=== PATIENT | male | born 1985 | race Caucasian/White ===

== ENCOUNTER → 2020-01-30 09:52 | Outpatient (BNVA) | payer MEDICAID, SELFPAY | PROVIDERS: Family Provider Counselor Professional; PCP Family Medicine; Visit Provider Psychiatry & Neurology Psychiatry | DX: F43.12 Post-traumatic stress disorder, chronic (principal); F40.10 Social phobia, unspecified; F41.1 Generalized anxiety disorder; F33.2 Major depressive disorder, recurrent severe without psychotic features | CPT/HCPCS: 99213 ==

== ENCOUNTER → 2020-02-13 09:15 | Outpatient (BNVA) | payer MEDICAID, SELFPAY | PROVIDERS: Family Provider Counselor Professional; PCP Family Medicine; Visit Provider Family Medicine | DX: I10 Essential (primary) hypertension (principal); E03.9 Hypothyroidism, unspecified; K21.9 Gastro-esophageal reflux disease without esophagitis; Z68.45 Body mass index [BMI] 70 or greater, adult; R06.02 Shortness of breath; R60.0 Localized edema | CPT/HCPCS: 80053; 80061; 84443 ==

== ENCOUNTER → 2020-02-26 08:34 | Outpatient (BNVA) | payer MEDICAID, SELFPAY | PROVIDERS: Family Provider Counselor Professional; PCP Family Medicine; Visit Provider Psychiatry & Neurology Psychiatry | DX: F33.2 Major depressive disorder, recurrent severe without psychotic features (principal); F41.1 Generalized anxiety disorder; F40.10 Social phobia, unspecified; F43.12 Post-traumatic stress disorder, chronic | CPT/HCPCS: 99213 ==

== ENCOUNTER → 2020-03-09 09:34 | Outpatient (BNVA) | payer MEDICAID, SELFPAY | PROVIDERS: Family Provider Counselor Professional; PCP Family Medicine; Visit Provider Family Medicine | DX: R82.90 Unspecified abnormal findings in urine (principal); E11.9 Type 2 diabetes mellitus without complications; R30.0 Dysuria; J30.9 Allergic rhinitis, unspecified; B37.0 Candidal stomatitis | CPT/HCPCS: 80048; 80053; 81000; 83036 ==

== ENCOUNTER → 2020-03-24 07:53 | Outpatient (BNVA) | payer MEDICAID, SELFPAY | PROVIDERS: Family Provider Counselor Professional; PCP Family Medicine; Visit Provider Psychiatry & Neurology Psychiatry | DX: F33.2 Major depressive disorder, recurrent severe without psychotic features (principal); F41.1 Generalized anxiety disorder; F40.10 Social phobia, unspecified; F43.12 Post-traumatic stress disorder, chronic | CPT/HCPCS: 99214 ==

== ENCOUNTER → 2020-03-26 08:45 | Outpatient (BNVA) | payer MEDICAID, SELFPAY | PROVIDERS: Family Provider Counselor Professional; PCP Family Medicine; Visit Provider Family Medicine | DX: E11.9 Type 2 diabetes mellitus without complications (principal); E11.65 Type 2 diabetes mellitus with hyperglycemia; E87.1 Hypo-osmolality and hyponatremia; E87.5 Hyperkalemia | CPT/HCPCS: 80048 ==

== ENCOUNTER → 2020-04-20 10:50 | Outpatient (BNVA) | payer MEDICAID, SELFPAY | PROVIDERS: Family Provider Counselor Professional; PCP Family Medicine; Visit Provider Family Medicine | DX: E11.65 Type 2 diabetes mellitus with hyperglycemia (principal); E66.01 Morbid (severe) obesity due to excess calories; R25.2 Cramp and spasm | CPT/HCPCS: 80053; 80061; 82306; 82310; 82607; 82728; 82746; 82785; 83036; 83540; 83550; 83735; 83970; 84100; 84425; 84443; 84630; 85025; 86003 ==

== ENCOUNTER 2020-04-27 20:00 | Outpatient (CLI) | payer MEDICAID, SELFPAY ==
--- NOTE | 2020-05-14 10:16 | PC.SOCIAL ---
Received a call from Kaley Ho, nurse for Dr. Díaz in regards to helping get a patient a BiPAP approved through Medicaid. He is not currently here in the hospital. [employer] precert done for BiPAP and heated humidifier and both were approved. Pre-cert request number for BiPAP: [id number]. Pre-cert request number for heated humidifier: [id number]. [facility]
== END 2020-04-27 20:01 | disposition home or self-care (01) ==
LOC: SLEEP 04-28 09:24
PROVIDERS: Family Provider Counselor Professional; PCP Family Medicine; Visit Provider Internal Medicine Critical Care Medicine
DX: G47.10 Hypersomnia, unspecified (principal); G47.33 Obstructive sleep apnea (adult) (pediatric)
CPT/HCPCS: 95811

== ENCOUNTER → 2020-05-05 07:52 | Outpatient (BNVA) | payer MEDICAID, SELFPAY | PROVIDERS: Family Provider Counselor Professional; PCP Family Medicine; Visit Provider Psychiatry & Neurology Psychiatry | DX: F43.12 Post-traumatic stress disorder, chronic (principal); F40.10 Social phobia, unspecified; F41.1 Generalized anxiety disorder; F33.2 Major depressive disorder, recurrent severe without psychotic features | CPT/HCPCS: 99213 ==

== ENCOUNTER → 2020-05-14 09:14 | Outpatient (BNVA) | payer MEDICAID, SELFPAY | PROVIDERS: Family Provider Counselor Professional; PCP Family Medicine; Visit Provider Family Medicine | DX: I10 Essential (primary) hypertension (principal); E03.9 Hypothyroidism, unspecified; K21.9 Gastro-esophageal reflux disease without esophagitis; R60.0 Localized edema; R06.02 Shortness of breath; Z68.45 Body mass index [BMI] 70 or greater, adult; E66.01 Morbid (severe) obesity due to excess calories; R25.2 Cramp and spasm; E55.9 Vitamin D deficiency, unspecified; E11.65 Type 2 diabetes mellitus with hyperglycemia; E87.1 Hypo-osmolality and hyponatremia | CPT/HCPCS: 82747; 85025 ==

== ENCOUNTER → 2020-06-09 10:23 | Outpatient (BNVA) | payer MEDICAID, SELFPAY | PROVIDERS: Family Provider Counselor Professional; PCP Family Medicine; Visit Provider Psychiatry & Neurology Psychiatry | DX: F33.2 Major depressive disorder, recurrent severe without psychotic features (principal); F41.1 Generalized anxiety disorder | CPT/HCPCS: 99214 ==

== ENCOUNTER → 2020-06-29 09:52 | Outpatient (BNVA) | payer MEDICAID, SELFPAY | PROVIDERS: Family Provider Counselor Professional; PCP Family Medicine; Visit Provider Psychiatry & Neurology Psychiatry | DX: F33.2 Major depressive disorder, recurrent severe without psychotic features (principal); F41.1 Generalized anxiety disorder | CPT/HCPCS: 99214 ==

== ENCOUNTER → 2020-07-15 10:35 | Outpatient (BNVA) | payer MEDICAID, SELFPAY | PROVIDERS: Family Provider Counselor Professional; PCP Family Medicine; Visit Provider Family Medicine | DX: I10 Essential (primary) hypertension (principal); E11.9 Type 2 diabetes mellitus without complications; E55.9 Vitamin D deficiency, unspecified | CPT/HCPCS: 80053; 82652; 83036 ==

== ENCOUNTER 2020-07-27 07:45 | Outpatient (CLI) | payer MEDICAID, SELFPAY ==
--- NOTE | 2020-07-27 08:45 | USCV_ITS ---
Omar Weems Age: 35 Gender: M : 1985 Exam Date: 07/27/2020 08:06 Ordering Phys: Irma Pérez MD ([email or web address]) Technologist: Wayne Andrew [place] [facility] [place]: PRE OP BP: 170 / 80 HR: 83 Rhythm: Sinus Technical Quality: Technically difficult study MEASUREMENTS (Male / Female) Normal Values 2D ECHO LVOT Diameter 2.0 cm LV Ejection Fraction MOD 2C 73.7 % LV Ejection Fraction 2C AL 72.5 % LA Diameter 5.3 cm LA Width 4.3 cm LA Height 5.6 cm RA Width 4.8 cm RA Height 4.9 cm M-MODE LV Diastolic Diameter MM 6.6 cm 4.2 - 5.9 / 3.9 - 5.3 cm LV Systolic Diameter MM 4.8 cm LV Ejection Fraction MM Teich 52.1 % IVS Diastolic Thickness MM 1.0 cm 0.6 - 1.0 / 0.6 - 0.9 cm IVS Systolic Thickness MM 1.8 cm LVPW Diastolic Thickness MM 1.4 cm 0.6 - 1.0 / 0.6 - 0.9 cm LVPW Systolic Thickness MM 2.3 cm RV Diastolic Diameter MM 3.2 cm Aortic Annulus Diameter 4.2 cm LA Ao Ratio MM 1.3 MV E Point Septal Separation 1.4 cm DOPPLER AV Peak Velocity 134.0 cm/s LVOT Peak Velocity 103.0 cm/s AV Area Cont Eq vti 2.1 cm squared AV Area Cont Eq pk 2.5 cm squared MV Area PHT 5.0 cm squared Mitral E to A Ratio 1.1 MV E' Velocity 87.0 cm/s TR Peak Velocity 116.0 cm/s TR Peak Gradient 5.4 mmHg TV Peak E Velocity 83.0 cm/s Right Atrial Pressure 3.0 mmHg Pulmonary Artery Systolic Pressu 8.4 mmHg PV Peak Velocity 109.0 cm/s FINDINGS Left Ventricle Normal left ventricular cavity size. Normal left ventricular systolic function. Left ventricular ejection fraction is estimated at 60%. No regional wall motion abnormalities. Diastolic function was not assessed. Right Ventricle Normal right ventricular size and systolic function. Right ventricular systolic pressure 8.4 mmHg. Right Atrium Normal right atrial size. Left Atrium Probably normal left atrial size. Mitral Valve Mildly thickened mitral valve. Aortic Valve Aortic valve not well visualized. No aortic valve stenosis. Tricuspid Valve Tricuspid valve not well visualized. Pulmonic Valve Pulmonic valve not well visualized. Pericardium No pericardial effusion. Aorta Aorta not well visualized. CONCLUSIONS 1. This is a technically very difficult study. Ultrasound enhancing agent (Optison) was used per protocol. 2. Normal left ventricular cavity size and systolic function. Left ventricular ejection fraction is estimated at 60%. No regional wall motion abnormalities. 3. Normal right ventricular size and systolic function. 4. No prior similar studies to compare. Irma Pérez MD (Electronically Signed) Final Date: 27 July 2020 14:52 S
[2020-07-27] MEDS: perflutren protein-a microsphr 0.22 mg/mL SDV 3 mL IV (08:46)
== END 2020-07-27 07:46 | disposition home or self-care (01) ==
LOC: RAD 07:46
PROVIDERS: Family Provider Counselor Professional; PCP Family Medicine; Visit Provider Internal Medicine Cardiovascular Disease
DX: Z01.810 Encounter for preprocedural cardiovascular examination (principal)
CPT/HCPCS: C8929; Q9956

== ENCOUNTER → 2020-08-03 08:21 | Outpatient (BNVA) | payer MEDICAID, SELFPAY | PROVIDERS: Family Provider Counselor Professional; PCP Family Medicine; Visit Provider Psychiatry & Neurology Psychiatry | DX: F41.1 Generalized anxiety disorder (principal); F33.9 Major depressive disorder, recurrent, unspecified | CPT/HCPCS: 99214 ==

== ENCOUNTER → 2020-09-07 08:33 | Outpatient (BNVA) | payer MEDICAID, SELFPAY | PROVIDERS: Family Provider Counselor Professional; PCP Family Medicine; Visit Provider Psychiatry & Neurology Psychiatry | DX: F41.1 Generalized anxiety disorder (principal); F43.10 Post-traumatic stress disorder, unspecified | CPT/HCPCS: 99214 ==

== ENCOUNTER → 2020-09-25 15:25 | Outpatient (BNVA) | payer MEDICAID, SELFPAY | PROVIDERS: Family Provider Counselor Professional; PCP Family Medicine; Visit Provider Psychiatry & Neurology Psychiatry | DX: F33.2 Major depressive disorder, recurrent severe without psychotic features (principal); F41.1 Generalized anxiety disorder; E66.01 Morbid (severe) obesity due to excess calories | CPT/HCPCS: 99213 ==

== ENCOUNTER → 2020-10-12 09:50 | Outpatient (BNVA) | payer MEDICAID, SELFPAY | PROVIDERS: Family Provider Counselor Professional; PCP Family Medicine; Visit Provider Family Medicine | DX: I10 Essential (primary) hypertension (principal); R25.2 Cramp and spasm; E11.65 Type 2 diabetes mellitus with hyperglycemia; E11.42 Type 2 diabetes mellitus with diabetic polyneuropathy; E11.9 Type 2 diabetes mellitus without complications | CPT/HCPCS: 83036 ==

== ENCOUNTER → 2020-12-29 08:18 | Outpatient (BNVA) | payer MEDICAID, SELFPAY | PROVIDERS: Family Provider Counselor Professional; PCP Family Medicine; Visit Provider Psychiatry & Neurology Psychiatry | DX: F33.2 Major depressive disorder, recurrent severe without psychotic features (principal); F41.1 Generalized anxiety disorder; E66.01 Morbid (severe) obesity due to excess calories | CPT/HCPCS: 99214 ==

== ENCOUNTER → 2021-01-11 08:56 | Outpatient (BNVA) | payer MEDICAID, SELFPAY | PROVIDERS: Family Provider Counselor Professional; PCP Family Medicine; Visit Provider Family Medicine | DX: E11.65 Type 2 diabetes mellitus with hyperglycemia (principal); E03.9 Hypothyroidism, unspecified; I10 Essential (primary) hypertension; E78.2 Mixed hyperlipidemia; K21.9 Gastro-esophageal reflux disease without esophagitis; E11.42 Type 2 diabetes mellitus with diabetic polyneuropathy; J30.9 Allergic rhinitis, unspecified; E78.5 Hyperlipidemia, unspecified; G25.81 Restless legs syndrome; Z68.45 Body mass index [BMI] 70 or greater, adult; J01.90 Acute sinusitis, unspecified; B97.89 Other viral agents as the cause of diseases classified elsewhere; Z74.09 Other reduced mobility | CPT/HCPCS: 80053; 80061; 83036; 84443 ==

== ENCOUNTER → 2021-02-15 08:15 | Outpatient (BNVA) | payer MEDICAID, SELFPAY | PROVIDERS: Family Provider Counselor Professional; PCP Family Medicine; Visit Provider Psychiatry & Neurology Psychiatry | DX: F41.1 Generalized anxiety disorder (principal); F33.2 Major depressive disorder, recurrent severe without psychotic features; E66.01 Morbid (severe) obesity due to excess calories | CPT/HCPCS: 99214 ==

== ENCOUNTER → 2021-04-06 08:59 | Outpatient (BNVA) | payer MEDICAID, SELFPAY | PROVIDERS: Family Provider Counselor Professional; PCP Family Medicine; Visit Provider Family Medicine | DX: E11.65 Type 2 diabetes mellitus with hyperglycemia (principal); J30.1 Allergic rhinitis due to pollen; E34.9 Endocrine disorder, unspecified | CPT/HCPCS: 80053; 83036; 84402; 84403 ==

== ENCOUNTER → 2021-04-19 08:27 | Outpatient (BNVA) | payer MEDICAID, SELFPAY | PROVIDERS: Family Provider Counselor Professional; PCP Family Medicine; Referring Provider Family Medicine; Visit Provider Family Medicine | DX: E34.9 Endocrine disorder, unspecified (principal); R53.83 Other fatigue; R79.89 Other specified abnormal findings of blood chemistry | CPT/HCPCS: 84402; 84403 ==

== ENCOUNTER → 2021-04-27 09:39 | Outpatient (BNVA) | payer MEDICAID, SELFPAY | PROVIDERS: Family Provider Counselor Professional; PCP Family Medicine; Referring Provider Family Medicine; Visit Provider Family Medicine | DX: R53.83 Other fatigue (principal) | CPT/HCPCS: 84402; 84403 ==

== ENCOUNTER → 2021-05-13 07:51 | Outpatient (BNVA) | payer MEDICAID, SELFPAY | PROVIDERS: Family Provider Counselor Professional; PCP Family Medicine; Visit Provider Psychiatry & Neurology Psychiatry | DX: F41.1 Generalized anxiety disorder (principal); E66.01 Morbid (severe) obesity due to excess calories; F33.2 Major depressive disorder, recurrent severe without psychotic features | CPT/HCPCS: 99214 ==

== ENCOUNTER → 2021-06-24 07:57 | Outpatient (BNVA) | payer MEDICAID, SELFPAY | PROVIDERS: Family Provider Counselor Professional; PCP Family Medicine; Visit Provider Psychiatry & Neurology Psychiatry | DX: F33.2 Major depressive disorder, recurrent severe without psychotic features (principal); F41.1 Generalized anxiety disorder; E66.01 Morbid (severe) obesity due to excess calories | CPT/HCPCS: 99214 ==

== ENCOUNTER → 2021-07-20 15:39 | Outpatient (BNVA) | payer MEDICAID, SELFPAY | PROVIDERS: Family Provider Counselor Professional; PCP Family Medicine; Visit Provider Family Medicine | DX: E11.65 Type 2 diabetes mellitus with hyperglycemia (principal); E11.42 Type 2 diabetes mellitus with diabetic polyneuropathy | CPT/HCPCS: 83036 ==

== ENCOUNTER → 2021-08-05 08:12 | Outpatient (BNVA) | payer MEDICAID, SELFPAY | PROVIDERS: Family Provider Counselor Professional; PCP Family Medicine; Visit Provider Psychiatry & Neurology Psychiatry | DX: F33.2 Major depressive disorder, recurrent severe without psychotic features (principal); F41.1 Generalized anxiety disorder; E66.01 Morbid (severe) obesity due to excess calories | CPT/HCPCS: 99214 ==

== ENCOUNTER → 2021-09-09 10:48 | Outpatient (BNVA) | payer MEDICAID, SELFPAY | PROVIDERS: Family Provider Counselor Professional; PCP Family Medicine; Visit Provider Family Medicine | DX: Z20.822 Contact with and (suspected) exposure to COVID-19 (principal); J32.9 Chronic sinusitis, unspecified; B96.89 Other specified bacterial agents as the cause of diseases classified elsewhere | CPT/HCPCS: 87635 ==

== ENCOUNTER → 2021-10-05 09:51 | Outpatient (BNVA) | payer MEDICAID, SELFPAY | PROVIDERS: Family Provider Counselor Professional; PCP Family Medicine; Visit Provider Psychiatry & Neurology Psychiatry | DX: F33.2 Major depressive disorder, recurrent severe without psychotic features (principal); F41.1 Generalized anxiety disorder; E66.01 Morbid (severe) obesity due to excess calories; B96.89 Other specified bacterial agents as the cause of diseases classified elsewhere; J32.9 Chronic sinusitis, unspecified | CPT/HCPCS: 99214 ==

== ENCOUNTER → 2021-11-30 08:58 | Outpatient (BNVA) | payer MEDICAID, SELFPAY | PROVIDERS: Family Provider Counselor Professional; PCP Family Medicine; Visit Provider Family Medicine | DX: E11.65 Type 2 diabetes mellitus with hyperglycemia (principal); E34.9 Endocrine disorder, unspecified; E29.1 Testicular hypofunction; E78.2 Mixed hyperlipidemia; E03.9 Hypothyroidism, unspecified; B37.2 Candidiasis of skin and nail; E66.01 Morbid (severe) obesity due to excess calories; I10 Essential (primary) hypertension | CPT/HCPCS: 80053; 80061; 83036; 84402; 84403; 84443 ==

== ENCOUNTER → 2021-12-03 11:24 | Outpatient (BNVA) | payer MEDICAID, SELFPAY | PROVIDERS: Family Provider Counselor Professional; PCP Family Medicine; Visit Provider Psychiatry & Neurology Psychiatry | DX: J32.9 Chronic sinusitis, unspecified (principal); B96.89 Other specified bacterial agents as the cause of diseases classified elsewhere; F41.1 Generalized anxiety disorder; E66.01 Morbid (severe) obesity due to excess calories; F33.2 Major depressive disorder, recurrent severe without psychotic features | CPT/HCPCS: 99214 ==

== ENCOUNTER → 2022-02-03 09:47 | Outpatient (BNVA) | payer MEDICAID, SELFPAY | PROVIDERS: Family Provider Counselor Professional; PCP Family Medicine; Visit Provider Internal Medicine Critical Care Medicine | DX: J45.909 Unspecified asthma, uncomplicated (principal); G47.33 Obstructive sleep apnea (adult) (pediatric); E66.01 Morbid (severe) obesity due to excess calories; Z87.891 Personal history of nicotine dependence; K21.9 Gastro-esophageal reflux disease without esophagitis; E78.5 Hyperlipidemia, unspecified; I10 Essential (primary) hypertension; E11.8 Type 2 diabetes mellitus with unspecified complications | CPT/HCPCS: 99214 ==

== ENCOUNTER → 2022-02-04 09:19 | Outpatient (BNVA) | payer MEDICAID, SELFPAY | PROVIDERS: Family Provider Counselor Professional; PCP Family Medicine; Visit Provider Psychiatry & Neurology Psychiatry | DX: F33.2 Major depressive disorder, recurrent severe without psychotic features (principal); F41.1 Generalized anxiety disorder; E66.01 Morbid (severe) obesity due to excess calories | CPT/HCPCS: 99214 ==

== ENCOUNTER → 2022-06-09 13:30 | Outpatient (BNVA) | payer MEDICAID, SELFPAY | PROVIDERS: Family Provider Counselor Professional; PCP Family Medicine; Visit Provider Family Medicine | DX: E11.65 Type 2 diabetes mellitus with hyperglycemia (principal); E34.9 Endocrine disorder, unspecified; E29.1 Testicular hypofunction | CPT/HCPCS: 80048; 83036; 84402; 84403; 84443 ==

== ENCOUNTER 2022-07-28 04:30 | Emergency (ER) | payer MEDICAID, SELFPAY ==
[2022-07-28 04:34] VITALS: BP 185/101; PULSE 101; RESP 22; TEMP 36.4; O2SAT 94; BMI 78.0
--- NOTE | 2022-07-28 04:56 | XRR_ITS ---
PROCEDURE INFORMATION: Exam: XR Chest Exam date and time: 07/28/2022 5:02 AM Age: 37 years old Clinical indication: Cough and shortness of breath; Patient HX: C/O cough with SOB and chest congestion; Additional info: Cough, SOB TECHNIQUE: Imaging protocol: Radiologic exam of the chest. Views: 2 views. PA and Lateral COMPARISON: No relevant prior studies available. FINDINGS: Lungs: There are normal lung volumes without interstitial or airspace opacities. Pleural spaces: There are no pleural effusions or pneumothorax. Heart/Mediastinum: The heart size is normal. The pulmonary vasculature is normal. The mediastinal contour is normal. The trachea is in the midline. Bones/joints: No acute abnormalities. Other: The exam is somewhat limited, related to the body habitus. XR/XR chest 2V* [id number] IMPRESSION: No chest radiographic evidence of acute cardiopulmonary disease.
--- NOTE | 2022-07-28 04:57 | ED_ITS ---
HPI - SOB/Dyspnea General: Chief Complaint: Shortness of Breath/Dyspnea Stated Complaint: Chest congestion, SOB Time Seen by Provider: 07/28/22 04:53 History of Present Illness: HPI Narrative: 37-year-old male presents with some chest congestion, shortness of breath, cough, subjective fever just not feeling well. Patient reports that his uncle who is around is sick and has pneumonia. Patient has some underlying reactive airway disease. Patient denies chest pain, nausea vomiting diarrhea. Associated symptoms: Reports extremity pain; Deny abdominal pain, chest pain, dizziness, nausea, palpitations or vomiting Review of Systems Const: Reports: chills and body aches ENMT: Denies: throat pain or ear or mastoid pain Card: Denies: chest pain or palpitations Resp: Reports: dyspnea, non-productive cough and wheezing GI: Denies: abdominal pain, nausea, vomiting or diarrhea : Denies: difficulty urinating or dysuria Musc: Reports: extremity pain Skin/Breast: Denies: rash Neuro: Denies: headache(s) or dizziness PFSH ED PFSH: Medical History Allergic rhinitis Diabetic neuropathy GERD (gastroesophageal reflux disease) Hyperlipidemia Hypertension Hypothyroidism Psychiatric care Type 2 diabetes mellitus Vitamin D deficiency Family History Family/Other Diabetes Hypertension Cancer Social History Smoking and tobacco status: current every day smoker e-cigarettes E-Cigarette Details: vaporizer device and with nicotine Second hand smoke exposure: Yes Smoking risk assessment/counseling performed?: Yes Tobacco counseling given: counseling >3 minutes Alcohol intake: current Alcohol intake frequency: holidays/special occasions only Lives independently: Yes Household members: family Marital status: Single Current occupational status: unemployed History of recent travel: No Current gender identity: Male Physical Exam Const: COMMON NORMALS: patient oriented x3 GENERAL APPEARANCE: cooperative NUTRITIONAL APPEARANCE: obese morbidly obese HENMT: COMMON NORMALS: hearing grossly normal bilaterally and moist oral mucous membranes Resp: COMMON NORMALS: normal respiratory effort, No retractions and No use of accessory muscles EFFORT & INSPECTION: Yes able to speak in complete sentences AUSCULTATION: bronchial breath sounds (Mild) diffuse Cardio: COMMON NORMALS: regular rate and regular rhythm RATE: regular rate RHYTHM: regular rhythm Extremity: COMMON NORMALS: full ROM Neuro: COMMON NORMALS: patient oriented x3, moves all extremities and no focal motor deficits Psych: COMMON NORMALS: mental status grossly normal, Normal thought process present and cooperative THOUGHT PROCESS: Normal thought process present Skin: COMMON NORMALS: no rashes or lesions noted GENERAL SKIN EXAM: no rashes or lesions noted Course Vital Signs: Vital signs: Vital Signs Temperature 97.5 F L 07/28/22 04:34 Pulse Rate 101 H 07/28/22 04:34 Respiratory Rate 22 H 07/28/22 04:34 Blood Pressure 185/101 07/28/22 04:34 Pulse Oximetry 94 07/28/22 04:34 Oxygen Delivery Me thod 07/28/22 04:34 MDM - SOB/Dyspnea Medical Decision Making No acute infiltrate or pneumonia noted on x-ray. Patient with some underlying reactive airway disease. Patient with bronchitis. I will start him on azithromycin. He was given a DuoNeb and Decadron here in the ER. Patient's COVID test was pending at discharge. He will be notified of a comes back positive. He should follow-up with his primary care provider as needed. Discharge Plan Discharge Patient Disposition: Home Clinical Impression: Bronchitis Condition: Stable Prescriptions: New azithromycin 250 mg tablet See Rx Instructions .ROUTE .COMPLEX Qty: 6 0RF Rx Instructions: For 250 mg dose pack: take 500 mg today (day 1), then 250 mg for 4 days (days 2-5) No Action (DME) pen needle, diabetic [ReliOn Pen [place]] 32 gauge x 5/32 needle See Rx Instructions .Route Qty: 50 0RF Rx Instructions: As directed, brand/type as needed with Ozempic pens triamcinolone acetonide 0.1 % cream 1 applic topical BID Qty: 80 0RF Rx Instructions: to hands fluconazole 150 mg tablet 150 mg PO Q3D 0 Days Qty: 2 1RF guaifenesin 1,200 mg tablet extended release 12hr 1,200 mg PO .at bedtime 90 Days Qty: 90 0RF albuterol sulfate 2.5 mg /3 mL (0.083 %) solution for nebulization 2.5 mg inhalation Q6H Qty: 150 0RF phentermine 37.5 mg tablet 37.5 mg PO DAILY Rx Instructions: must administer 30 minutes before or 1-2 hours after breakfast pregabalin 75 mg capsule 75 mg PO TID 30 Days Qty: 90 2RF ropinirole 0.5 mg tablet See Rx Instructions .ROUTE .COMPLEX Qty: 30 2RF Dose Instruction: TAKE 1 TABLET BY MOUTH AT BEDTIME Rx Instructions: TAKE 1 TABLET BY MOUTH AT BEDTIME testosterone cypionate 200 mg/mL oil 100 mg IM .q 2 weeks 28 Days Qty: 2 5RF Rx Instructions: With needles and syringes for injection omeprazole 20 mg capsule,delayed release(DR/EC) See Rx Instructions .ROUTE .COMPLEX Qty: 30 5RF Dose Instruction: TAKE 1 CAPSULE BY MOUTH DAILY NEEDED FOR HEARTBURN Rx Instructions: TAKE 1 CAPSULE BY MOUTH DAILY NEEDED FOR HEARTBURN metformin 500 mg tablet See Rx Instructions .ROUTE .COMPLEX Qty: 60 2RF Dose Instruction: TAKE 1 TABLET BY MOUTH TWICE DAILY Rx Instructions: TAKE 1 TABLET BY MOUTH TWICE DAILY loratadine 10 mg tablet 10 mg PO DAILY 30 Days Qty: 30 5RF levothyroxine 75 mcg tablet See Rx Instructions .ROUTE .COMPLEX Qty: 30 5RF Dose Instruction: TAKE 1 TABLET BY MOUTH DAILY Rx Instructions: TAKE 1 TABLET BY MOUTH DAILY Lantus Solostar U-100 Insulin 100 unit/mL (3 mL) insulin pen See Rx Instructions .ROUTE .COMPLEX Qty: 42 2RF Dose Instruction: ADMINISTER 70 UNITS UNDER THE SKIN TWICE DAILY Rx Instructions: ADMINISTER 70 UNITS UNDER THE SKIN TWICE DAILY hydrochlorothiazide 25 mg tablet 25 mg PO DAILY 30 Days Qty: 30 2RF ibuprofen 800 mg tablet See Rx Instructions .ROUTE .COMPLEX Qty: 90 2RF Dose Instruction: TAKE 1 TABLET BY MOUTH EVERY 8 HOURS NEEDED FOR PAIN. MAXIMUM DAILY DOSE IS: 3 TABLET; WITH FOOD Rx Instructions: TAKE 1 TABLET BY MOUTH EVERY 8 HOURS NEEDED FOR PAIN. MAXIMUM DAILY DOSE IS: 3 TABLET; WITH FOOD furosemide 40 mg tablet See Rx Instructions .ROUTE .COMPLEX Qty: 60 2RF Dose Instruction: TAKE 1 TABLET BY MOUTH TWICE DAILY Rx Instructions: TAKE 1 TABLET BY MOUTH TWICE DAILY fluticasone propionate 50 mcg/actuation spray,suspension See Rx Instructions .ROUTE .COMPLEX Qty: 16 2RF Dose Instruction: SHAKE LIQUID AND USE 1 SPRAY IN EACH NOSTRIL EVERY 12 HOURS Rx Instructions: SHAKE LIQUID AND USE 1 SPRAY IN EACH NOSTRIL EVERY 12 HOURS Jardiance 25 mg tablet See Rx Instructions .ROUTE .COMPLEX Qty: 30 2RF Dose Instruction: TAKE 1 TABLET BY MOUTH DAILY Rx Instructions: TAKE 1 TABLET BY MOUTH DAILY Trulicity 0.75 mg/0.5 mL pen injector See Rx Instructions .ROUTE .COMPLEX Qty: 2 2RF Dose Instruction: ADMINISTER 0.75 MG UNDER THE SKIN WEEKLY Rx Instructions: ADMINISTER 0.75 MG UNDER THE SKIN WEEKLY budesonide-formoterol [Symbicort] 80-4.5 mcg/actuation HFA aerosol inhaler See Rx Instructions .ROUTE .COMPLEX Qty: 10.2 3RF Dose Instruction: INHALE 2 PUFFS BY MOUTH EVERY 12 HOURS Rx Instructions: INHALE 2 PUFFS BY MOUTH EVERY 12 HOURS atorvastatin 10 mg tablet See Rx Instructions .ROUTE .COMPLEX Qty: 30 2RF Dose Instruction: TAKE 1 TABLET BY MOUTH DAILY Rx Instructions: TAKE 1 TABLET BY MOUTH DAILY atenolol 100 mg tablet 100 mg PO BID 30 Days Qty: 60 5RF (DME) BD Eclipse Luer-Brenden 3 mL 22 gauge x 1 1/2 syringe See Rx Instructions .Route Qty: 300 0RF Rx Instructions: To use to administer testosterone injection nystatin 100,000 unit/mL suspension 5 ml PO BID 30 Days Qty: 480 2RF Rx Instructions: administer 1/2 of dose in each side of the mouth OneTouch Verio test strips Strip See Rx Instructions .ROUTE .COMPLEX Qty: 100 11RF Dose Instruction: USE TO TEST BLOOD SUGAR THREE TIMES DAILY. Rx Instructions: USE TO TEST BLOOD SUGAR THREE TIMES DAILY. azelastine 137 mcg (0.1 %) aerosol,spray 1 spray intranasal BID Qty: 30 5RF Rx Instructions: administer into each nostril (DME) pen needle, diabetic [TechLITE Pen Needle] 31 gauge x 5/16 needle See Rx Instructions .ROUTE .COMPLEX Qty: 100 11RF Dose Instruction: USE DIRECTED. Rx Instructions: USE DIRECTED. nystatin [Nystop] 100,000 unit/gram powder See Rx Instructions .ROUTE .COMPLEX Qty: 60 0RF Dose Instruction: APPLY TOPICALLY TO DRY SKIN FOLDS AFTER SHOWER FOR PREVENTION. Rx Instructions: APPLY TOPICALLY TO DRY SKIN FOLDS AFTER SHOWER FOR PREVENTION. ergocalciferol (vitamin D2) 1,250 mcg (50,000 unit) capsule See Rx Instructions .ROUTE .COMPLEX Qty: 13 0RF Dose Instruction: TAKE ONE CAPSULE BY MOUTH ONCE WEEKLY. Rx Instructions: TAKE ONE CAPSULE BY MOUTH ONCE WEEKLY. aripiprazole 10 mg tablet 10 mg PO .qhs 30 Days Qty: 30 3RF lorazepam 0.5 mg tablet 0.5 mg PO DAILY PRN (Reason: anxiety) 30 Days Qty: 30 3RF trazodone 100 mg tablet 200 mg PO .HS 30 Days Qty: 60 3RF venlafaxine 225 mg tablet extended release 24hr 225 mg PO QAM Qty: 30 3RF albuterol sulfate 90 mcg/actuation HFA aerosol inhaler See Rx Instructions .ROUTE .COMPLEX Qty: 8.5 6RF Dose Instruction: INHALE 2 PUFFS BY MOUTH EVERY 6 HOURS NEEDED FOR SHORTNESS OF BREATH OR WHEEZING Rx Instructions: INHALE 2 PUFFS BY MOUTH EVERY 6 HOURS NEEDED FOR SHORTNESS OF BREATH OR WHEEZING baclofen 20 mg tablet 20 mg PO QID MDD 4 tabs PRN (Reason: muscle spasm) 30 Days Qty: 120 2RF Hold Instructions: Home Medication placed on hold at Doctor's office Discharge Orders: Discharge ED (Routine); Ordered 07/28/22 Ordered By: Yovani Huston Referrals: Amparo Hawkins MD [Primary Care Provider] - Discharge Diet: Usual diet Discharge Activity: Increase activity as tolerated Patient Instructions: Opioid Safety, Pain Management, Acute Bronchitis (ED) Activity Restrictions/Additional Instructions: Follow-up with your primary care provider if symptoms have not improved after antibiotics Coding Level of Care Code ED Cigarette Book Maker for Eric Fwd Exam Comprehensive
[2022-07-28 05:31] LABS: SARS Covid-2 Antigen Negative (Negative)
[2022-07-28 05:38] VITALS: PULSE 87; RESP 16; O2SAT 97
[2022-07-28 05:50] VITALS: PULSE 84
[2022-07-28 05:52] VITALS: BP 148/80; PULSE 84; RESP 18; O2SAT 95
[2022-07-28] MEDS: dexamethasone 4 mg Tablet 10 MG PO (05:52)
== END 2022-07-28 05:53 | disposition home or self-care (01) ==
PROVIDERS: Emergency Provider Student in an Organized Health Care Education/Training Program; PCP Family Medicine
DX: J40 Bronchitis, not specified as acute or chronic (principal); Z79.899 Other long term (current) drug therapy; Z79.84 Long term (current) use of oral hypoglycemic drugs; Z79.4 Long term (current) use of insulin; E78.5 Hyperlipidemia, unspecified; I10 Essential (primary) hypertension; E11.9 Type 2 diabetes mellitus without complications; F17.290 Nicotine dependence, other tobacco product, uncomplicated
CPT/HCPCS: 71046; 87426; 94640; 99283; J8540

== ENCOUNTER → 2022-08-10 10:53 | Outpatient (BNVA) | payer MEDICAID, SELFPAY | PROVIDERS: PCP Family Medicine; Visit Provider Internal Medicine Critical Care Medicine | DX: J45.998 Other asthma (principal); J30.1 Allergic rhinitis due to pollen; G47.33 Obstructive sleep apnea (adult) (pediatric); E66.01 Morbid (severe) obesity due to excess calories; J34.89 Other specified disorders of nose and nasal sinuses; Z68.45 Body mass index [BMI] 70 or greater, adult; F17.290 Nicotine dependence, other tobacco product, uncomplicated | CPT/HCPCS: 99213; 99214 ==

== ENCOUNTER → 2022-09-07 09:37 | Outpatient (BNVA) | payer MEDICAID, SELFPAY | PROVIDERS: PCP Family Medicine; Visit Provider Family Medicine | DX: I10 Essential (primary) hypertension (principal); E34.9 Endocrine disorder, unspecified; E55.9 Vitamin D deficiency, unspecified | CPT/HCPCS: 80048; 82652; 83036; 84402; 84403 ==

== ENCOUNTER → 2022-11-11 09:49 | Outpatient (BNVA) | payer MEDICAID, SELFPAY | PROVIDERS: PCP Family Medicine; Visit Provider Emergency Medicine | DX: R68.89 Other general symptoms and signs (principal); J01.01 Acute recurrent maxillary sinusitis | CPT/HCPCS: 87400 ==

== ENCOUNTER → 2023-03-13 09:49 | Outpatient (BNVA) | payer MEDICAID, SELFPAY | PROVIDERS: PCP Family Medicine; Visit Provider Family Medicine | DX: E34.9 Endocrine disorder, unspecified (principal); J32.9 Chronic sinusitis, unspecified; E11.65 Type 2 diabetes mellitus with hyperglycemia | CPT/HCPCS: 80053; 80061; 83036; 84402; 84403 ==

== ENCOUNTER → 2023-06-19 10:01 | Outpatient (BNVA) | payer MEDICAID, SELFPAY | PROVIDERS: PCP Family Medicine; Visit Provider Family Medicine | DX: E34.9 Endocrine disorder, unspecified (principal); E29.1 Testicular hypofunction; E11.65 Type 2 diabetes mellitus with hyperglycemia; I10 Essential (primary) hypertension | CPT/HCPCS: 80053; 83036; 84402; 84403 ==

== ENCOUNTER → 2023-09-18 10:07 | Outpatient (BNVA) | payer MEDICAID, SELFPAY | PROVIDERS: PCP Family Medicine; Visit Provider Family Medicine | DX: E03.9 Hypothyroidism, unspecified (principal); E34.9 Endocrine disorder, unspecified; E29.1 Testicular hypofunction; E11.65 Type 2 diabetes mellitus with hyperglycemia | CPT/HCPCS: 80048; 83036; 84402; 84403; 84439; 84443; 84481 ==

== ENCOUNTER → 2023-10-02 09:42 | Outpatient (BNVA) | payer MEDICAID, SELFPAY | PROVIDERS: PCP Family Medicine; Visit Provider Family Medicine | DX: E29.1 Testicular hypofunction (principal) | CPT/HCPCS: 84402 ==

== ENCOUNTER → 2023-12-19 10:32 | Outpatient (BNVA) | payer MEDICAID, SELFPAY ==
[2023-10-31 16:46] VITALS: BP 129/87; BMI 71.6
== END ==
PROVIDERS: PCP Family Medicine; Visit Provider Family Medicine
DX: E34.9 Endocrine disorder, unspecified (principal); E29.1 Testicular hypofunction; E11.65 Type 2 diabetes mellitus with hyperglycemia
CPT/HCPCS: 83036; 84402; 84403

== ENCOUNTER → 2024-03-18 10:13 | Outpatient (BNVA) | payer MEDICAID, SELFPAY ==
[2023-10-31 16:46] VITALS: BP 129/87; BMI 71.6
== END ==
PROVIDERS: PCP Family Medicine; Visit Provider Family Medicine
DX: E03.9 Hypothyroidism, unspecified (principal); E11.65 Type 2 diabetes mellitus with hyperglycemia; E78.2 Mixed hyperlipidemia; I10 Essential (primary) hypertension
CPT/HCPCS: 80048; 80061; 83036; 84443; 85025

== ENCOUNTER → 2024-07-02 10:01 | Outpatient (BNVA) | payer MEDICAID, SELFPAY ==
[2024-03-21 14:34] VITALS: BP 148/86
[2024-03-21 14:36] VITALS: BMI 70.4
== END ==
PROVIDERS: PCP Family Medicine; Visit Provider Nurse Practitioner Family
DX: E03.9 Hypothyroidism, unspecified (principal); E29.1 Testicular hypofunction; G47.33 Obstructive sleep apnea (adult) (pediatric); G47.00 Insomnia, unspecified; R53.83 Other fatigue
CPT/HCPCS: 80048; 82607; 84402; 84403; 84443; 85025

== ENCOUNTER → 2024-07-16 09:55 | Outpatient (BNVA) | payer MEDICAID, SELFPAY ==
[2024-03-21 14:34] VITALS: BP 148/86
[2024-03-21 14:36] VITALS: BMI 70.4
== END ==
PROVIDERS: PCP Family Medicine; Visit Provider Family Medicine
DX: I10 Essential (primary) hypertension (principal); R53.83 Other fatigue
CPT/HCPCS: 80048; 82652; 83036; 85007; 85027; 86618; 86666; 86757

== ENCOUNTER → 2024-08-15 14:06 | Outpatient (BNVA) | payer MEDICAID, SELFPAY ==
[2024-03-21 14:34] VITALS: BP 148/86
[2024-03-21 14:36] VITALS: BMI 70.4
== END ==
PROVIDERS: PCP Family Medicine; Referring Provider Family Medicine; Visit Provider Family Medicine
DX: E03.9 Hypothyroidism, unspecified (principal); E34.9 Endocrine disorder, unspecified
CPT/HCPCS: 84402; 84403; 84439; 84443; 84481

== ENCOUNTER → 2024-09-02 10:58 | Outpatient (BNVA) | payer MEDICAID, SELFPAY ==
[2024-03-21 14:34] VITALS: BP 148/86
[2024-03-21 14:36] VITALS: BMI 70.4
== END ==
PROVIDERS: PCP Family Medicine
DX: R07.9 Chest pain, unspecified (principal)
CPT/HCPCS: 93005

== ENCOUNTER → 2024-09-24 10:49 | Outpatient (BNVA) | payer MEDICAID, SELFPAY ==
[2024-03-21 14:34] VITALS: BP 148/86
[2024-03-21 14:36] VITALS: BMI 70.4
== END ==
PROVIDERS: PCP Family Medicine; Visit Provider Internal Medicine Cardiovascular Disease
DX: R07.9 Chest pain, unspecified (principal)
CPT/HCPCS: 93005; 99205

== ENCOUNTER 2024-10-01 09:15 | Outpatient (CLI) | payer MEDICAID, SELFPAY ==
[2024-03-21 14:34] VITALS: BP 148/86
[2024-03-21 14:36] VITALS: BMI 70.4
--- NOTE | 2024-10-01 09:30 | ECG_ITS ---
[employer] Test Date: 2024-10-01 Pat Name: Omar Weems Department: Room: Gender: Male Handkerchief Folder: : 1985 Requested By: Sandy Barrow Order Number: [id number] MD: Sandy Barrow M.D. Interpretive Statements Lung unchanged pre/post procedure; Intraprocedure shortess of breath; Symptoms resoled by discharge PROCEDURE: The baseline electrocardiogram showed normal sinus rhythm with normal ST-Ts poor R wave progression. At the baseline, the patient's blood pressure was 156/89 mm Hg with a heart rate of 81. The patient exercised for 5 minutes and 4 seconds on a standard Olman protocol. Patient attained a maximum heart rate of 169 beats per minute(92% of the maximum predicted heart rate) with a blood pressure at the peak exercise of 173/110 mm Hg. The EKG at the peak exercise revealed no significant changes. Patient did not have any chest pain or any significant arrhythmis with the exercise Sestamibi was injected 1 minute prior to the peak exercise During the recovery phase, there were no new changes. Blood pressure at the end of the recovery phase was 145/73 mm Hg with a heart rate of 95 per minute. CONCLUSION: 1. No significant EKG changes with the with the [treadmill exercise 2. No exercise-induced chest pain or cardiac arrhythmia 3. Slightly impaired exercise tolerance, attained a maximum of 7.0 METs 4. Sestamibi/Sestamibi perfusion results pending; see separate report. Electronically Signed On 10-02-2024 20:03:52 [employer] PROCESSING TECHNICIAN by Sandy Barrow M.D. [email or web address]
--- NOTE | 2024-10-01 09:31 | NMCV_ITS ---
NM wendie perf SPECT r/s* [id number] Omar Weems Age: 39 Gender: M : 1985 Exam Date: 10/01/2024 10:58 Ordering Phys: Sandy Barrow MD ([email or web address]) Technologist: SAM Drake Exam [facility]: [facility] Indications: cp STRESS TEST [facility] IMAGE PROTOCOL Rest/Stress 1 Exercise Day Radiopharmaceutical Dose (mCi) Administration Site Administered by Rest: Tc-99m 11 IV SAM Tate Sestamibi Stress:Tc-99m 33 IV SAM Tate Sestamibi Rest: 01-Oct-2024 60 Discovery 630 Stress: 01-Oct-2024 30 Discovery 630 0.4mg Lexiscan. Supine position only as patient was unable to lay prone. SPECT RESULTS Technical Quality: Good Raw Data Analysis: Soft tissue attenuation Image Corrections: No attenuation or motion correction applied Summed Stress Score: 2 Summed Rest Score: 2 Summed Difference Score: 2 PERFUSION FINDINGS A small area of moderately decreased tracer uptake was noted in the apical lateral region. Some reversibility was noted in this region. FUNCTIONAL RESULTS (calculated via Gated SPECT) Stress Image LV EF (%): 62 Stress EDV (mL):137 TID: 1.01 Stress ESV (mL):52 FUNCTIONAL FINDINGS: Segmental wall motion analysis revealing no gross wall motion abnormalities IMPRESSIONS 1. Myocardial perfusion imaging revealing a small area of reversible defect in the apical lateral region suggestive of ischemia in distribution of the left circumflex artery. 2. Normal LV ejection fraction of 62%. 3. LV wall motion analysis revealing no gross wall motion abnormalities. 4. Normal LV volume No similar previous studies are available for comparison Dr Sandy Barrow MD FAC (Electronically Signed) Final Date: 01 October 2024 16:44 S
[2024-10-01 10:20] VITALS: BMI 64.7
[2024-10-01 11:36] VITALS: BP 145/73; PULSE 94
== END 2024-10-01 09:16 | disposition home or self-care (01) ==
PROVIDERS: PCP Family Medicine; Visit Provider Internal Medicine Cardiovascular Disease
DX: Z98.61 Coronary angioplasty status (principal); R94.39 Abnormal result of other cardiovascular function study; R06.02 Shortness of breath
CPT/HCPCS: 36415; 78452; 93017; A9500

== ENCOUNTER → 2024-12-23 10:17 | Outpatient (BNVA) | payer MEDICAID, SELFPAY ==
[2024-03-21 14:34] VITALS: BP 148/86
[2024-03-21 14:36] VITALS: BMI 70.4
== END ==
PROVIDERS: PCP Family Medicine; Visit Provider Nurse Practitioner Family
DX: I10 Essential (primary) hypertension (principal); G47.33 Obstructive sleep apnea (adult) (pediatric); I44.1 Atrioventricular block, second degree; E78.2 Mixed hyperlipidemia; R00.2 Palpitations; E11.9 Type 2 diabetes mellitus without complications; R94.31 Abnormal electrocardiogram [ECG] [EKG]; Z79.4 Long term (current) use of insulin
CPT/HCPCS: 99214

== ENCOUNTER → 2025-01-09 09:44 | Outpatient (BNVA) | payer MEDICAID, SELFPAY ==
[2024-03-21 14:34] VITALS: BP 148/86
[2024-03-21 14:36] VITALS: BMI 70.4
== END ==
PROVIDERS: PCP Family Medicine; Visit Provider Family Medicine
DX: I10 Essential (primary) hypertension (principal); E11.65 Type 2 diabetes mellitus with hyperglycemia; E03.9 Hypothyroidism, unspecified; E29.1 Testicular hypofunction; E34.9 Endocrine disorder, unspecified
CPT/HCPCS: 80053; 80061; 83036; 84402; 84403; 84439; 84443; 84481; 85007; 85027

== ENCOUNTER → 2025-02-24 14:28 | Outpatient (BNVA) | payer MEDICAID, SELFPAY ==
[2025-01-10 08:51] VITALS: BP 145/96; BMI 67.0
== END ==
PROVIDERS: PCP Family Medicine; Visit Provider Nurse Practitioner
DX: L02.212 Cutaneous abscess of back [any part, except buttock and flank] (principal)
CPT/HCPCS: 87070; 87075; 87205

== ENCOUNTER → 2025-02-26 13:51 | Outpatient (BNVA) | payer MEDICAID, SELFPAY ==
[2025-01-10 08:51] VITALS: BP 145/96; BMI 67.0
== END ==
PROVIDERS: PCP Family Medicine; Visit Provider Nurse Practitioner
DX: L02.91 Cutaneous abscess, unspecified (principal)
CPT/HCPCS: 85025

== ENCOUNTER → 2025-03-04 09:04 | Outpatient (BNVA) | payer MEDICAID, SELFPAY ==
[2025-01-10 08:51] VITALS: BP 145/96; BMI 67.0
== END ==
PROVIDERS: PCP Family Medicine; Visit Provider Thoracic Surgery (Cardiothoracic Vascular Surgery)
DX: I96 Gangrene, not elsewhere classified (principal); L02.212 Cutaneous abscess of back [any part, except buttock and flank]
CPT/HCPCS: 10060; A6446

== ENCOUNTER → 2025-03-06 14:53 | Outpatient (BNVA) | payer MEDICAID, SELFPAY ==
[2025-01-10 08:51] VITALS: BP 145/96; BMI 67.0
== END ==
PROVIDERS: PCP Family Medicine; Visit Provider Thoracic Surgery (Cardiothoracic Vascular Surgery)
DX: L02.212 Cutaneous abscess of back [any part, except buttock and flank] (principal)
CPT/HCPCS: 97602; A6212; A6446

== ENCOUNTER → 2025-03-18 10:06 | Outpatient (BNVA) | payer MEDICAID, SELFPAY ==
[2025-01-10 08:51] VITALS: BP 145/96; BMI 67.0
== END ==
PROVIDERS: PCP Family Medicine; Visit Provider Thoracic Surgery (Cardiothoracic Vascular Surgery)
DX: I96 Gangrene, not elsewhere classified (principal); L98.422 Non-pressure chronic ulcer of back with fat layer exposed

== ENCOUNTER → 2025-03-24 10:46 | Outpatient (BNVA) | payer MEDICAID, SELFPAY ==
[2025-01-10 08:51] VITALS: BP 145/96; BMI 67.0
== END ==
PROVIDERS: PCP Family Medicine; Visit Provider Thoracic Surgery (Cardiothoracic Vascular Surgery)
DX: I96 Gangrene, not elsewhere classified (principal); L98.422 Non-pressure chronic ulcer of back with fat layer exposed
CPT/HCPCS: 11042

== ENCOUNTER → 2025-04-02 10:48 | Outpatient (BNVA) | payer MEDICAID, SELFPAY ==
[2025-01-10 08:51] VITALS: BP 145/96; BMI 67.0
== END ==
PROVIDERS: PCP Family Medicine; Visit Provider Thoracic Surgery (Cardiothoracic Vascular Surgery)
DX: I96 Gangrene, not elsewhere classified (principal); T81.31XD Disruption of external operation (surgical) wound, not elsewhere classified, subsequent encounter; Y83.8 Other surgical procedures as the cause of abnormal reaction of the patient, or of later complication, without mention of misadventure at the time of the procedure
CPT/HCPCS: 11042

== ENCOUNTER → 2025-04-21 09:54 | Outpatient (BNVA) | payer MEDICAID, SELFPAY ==
[2025-01-10 08:51] VITALS: BP 145/96; BMI 67.0
== END ==
PROVIDERS: PCP Family Medicine; Visit Provider Internal Medicine Cardiovascular Disease
DX: R94.39 Abnormal result of other cardiovascular function study (principal); R07.89 Other chest pain; I10 Essential (primary) hypertension; R00.2 Palpitations; E78.2 Mixed hyperlipidemia; F33.2 Major depressive disorder, recurrent severe without psychotic features; E11.65 Type 2 diabetes mellitus with hyperglycemia; E03.9 Hypothyroidism, unspecified; Z68.45 Body mass index [BMI] 70 or greater, adult; G47.33 Obstructive sleep apnea (adult) (pediatric); Z87.891 Personal history of nicotine dependence; Z79.4 Long term (current) use of insulin
CPT/HCPCS: 99214

== ENCOUNTER → 2025-04-23 10:42 | Outpatient (BNVA) | payer MEDICAID, SELFPAY ==
[2025-01-10 08:51] VITALS: BP 145/96; BMI 67.0
== END ==
PROVIDERS: PCP Family Medicine; Visit Provider Thoracic Surgery (Cardiothoracic Vascular Surgery)
DX: I96 Gangrene, not elsewhere classified (principal); L98.421 Non-pressure chronic ulcer of back limited to breakdown of skin
CPT/HCPCS: 97597; A6210

== ENCOUNTER → 2025-05-15 12:48 | Outpatient (BNVA) | payer MEDICAID, SELFPAY ==
[2025-01-10 08:51] VITALS: BP 145/96; BMI 67.0
== END ==
PROVIDERS: PCP Family Medicine; Visit Provider Thoracic Surgery (Cardiothoracic Vascular Surgery)
DX: I96 Gangrene, not elsewhere classified (principal); L98.421 Non-pressure chronic ulcer of back limited to breakdown of skin
CPT/HCPCS: 97597

== ENCOUNTER → 2025-05-22 12:53 | Outpatient (BNVA) | payer MEDICAID, SELFPAY ==
[2025-01-10 08:51] VITALS: BP 145/96; BMI 67.0
== END ==
PROVIDERS: PCP Family Medicine; Visit Provider Thoracic Surgery (Cardiothoracic Vascular Surgery)
DX: Z09 Encounter for follow-up examination after completed treatment for conditions other than malignant neoplasm (principal); Z87.2 Personal history of diseases of the skin and subcutaneous tissue
CPT/HCPCS: 99212

== ENCOUNTER → 2025-06-02 12:37 | Outpatient (BNVA) | payer MEDICAID, SELFPAY ==
[2025-01-10 08:51] VITALS: BP 145/96; BMI 67.0
== END ==
PROVIDERS: PCP Family Medicine; Visit Provider Family Medicine
DX: E11.65 Type 2 diabetes mellitus with hyperglycemia (principal); E34.9 Endocrine disorder, unspecified
CPT/HCPCS: 83036; 84402; 84403

== ENCOUNTER → 2025-07-09 14:25 | Outpatient (BNVA) | payer MEDICAID, SELFPAY ==
[2025-01-10 08:51] VITALS: BP 145/96; BMI 67.0
== END ==
PROVIDERS: PCP Family Medicine; Visit Provider Family Medicine
DX: E11.65 Type 2 diabetes mellitus with hyperglycemia (principal)
CPT/HCPCS: 80048; 83036

== ENCOUNTER → 2025-10-13 14:41 | Outpatient (BNVA) | payer MEDICAID, SELFPAY ==
[2025-01-10 08:51] VITALS: BP 145/96; BMI 67.0
== END ==
PROVIDERS: PCP Family Medicine; Visit Provider Family Medicine
DX: E03.9 Hypothyroidism, unspecified (principal); I10 Essential (primary) hypertension; E11.65 Type 2 diabetes mellitus with hyperglycemia; E29.1 Testicular hypofunction; E34.9 Endocrine disorder, unspecified; E11.9 Type 2 diabetes mellitus without complications
CPT/HCPCS: 80048; 83036; 83540; 84402; 84403; 84439; 84443; 84481; 85025